=== PATIENT | male | born 1990 | race African-American/Black ===

== ENCOUNTER 2016-11-25 08:48 | Inpatient (IN) | payer OTHER ==
[2016-11-25] MEDS ORDERED: HYDROmorphone HCL CARPU-JECT 1 MG/1 ML DISP.SYRIN IVPUSH ONE ×2 (09:41→12:56)
[2016-11-25] MEDS ORDERED: SODIUM CHLORIDE 1,000 ML IV SCH (09:45)
--- NOTE | 2016-11-25 09:50 | PDOC ---
History of Present Illness - General Chief Complaint: Pain, Acute Stated Complaint: ABDOMINAL PAIN Time Seen by Provider: 11/25/16 08:53 - History of Present Illness Initial Comments: 11/25/16 09:43 26-year-old male with a negative past medical history, he is on no medications, NKDA Patient states that on Tuesday, he was awakened from sleep at 5:30 AM with severe upper midepigastric abdominal pain, and he vomited once The pain continued, and he was seen in [place] emergency department on Tuesday , and had x-rays and was sent home He states that Tuesday he felt a little better, but on Tuesday his pain recurred and became more severe On Tuesday he described his pain as upper mid epigastric and left upper quadrant, and was seen in the ER at [facility] He states he had blood work, and was given Pepcid and sent home He states the pain continued, and became more severe today, radiating to his right lower quadrant, and back up to his left upper quadrant and upper midepigastric and RUQ He states the pain is worse with eating, and he has very little appetite He states the pain is worse with deep inspiration He denies any fevers or chills He denies any prior abdominal surgery His last bowel movement was last night He denies any dysuria urgency frequency or urinary symptoms He denies any drug or alcohol use He denies any other complaints at this time He states that he has had gastritis in the past, but that felt a lot different than his pain today, and was mostly burning, and associated with GERD Remainder the review of systems is negative Past History - Past Medical History Allergies/Adverse Reactions: Allergies Allergy/AdvReac Type Severity Reaction Status Date / Time No Known Allergies Allergy Verified 11/25/16 08:51 Home Medications: Ambulatory Orders Dicyclomine HCl [Bentyl -] 20 mg PO BID 11/25/16 Docusate Sodium [Colace -] 100 mg PO BID 11/25/16 Famotidine [Pepcid -] 40 mg PO DAILY 11/25/16 Oxycodone HCl/Acetaminophen [Percocet 5-325 mg Tablet] 1 - 2 tab PO Q4H #30 tablet MDD 10 11/26/16 Other medical history: PT DENIES - Psycho/Social/Smoking Cessation Hx Anxiety: No Suicidal Ideation: No Smoking History: Never smoked Information on smoking cessation initiated: No Hx Alcohol Use: No Drug/Substance Use Hx: No Substance Use Type: None Review of Systems - Review of Systems Able to Perform ROS?: Yes Comments:: 11/25/16 09:47 12 point review of systems is as per history of present illness and otherwise negative *Physical Exam - Vital Signs Last Vital Signs Temp Pulse Resp BP Pulse Ox 98.5 F 80 16 163/110 98 11/25/16 08:55 11/25/16 08:55 11/25/16 08:55 11/25/16 08:55 11/25/16 08:55 - Physical Exam Comments: 11/25/16 09:47 Physical exam Last Vital Signs Temp Pulse Resp BP Pulse Ox 98.5 F 80 16 163/110 98 11/25/16 08:55 11/25/16 08:55 11/25/16 08:55 11/25/16 08:55 11/25/16 08:55 GENERAL: The patient is awake, alert, and in severe pain HEAD: Normal with no signs of trauma. EYES: sclera anicteric, conjunctiva are normal. ENT: Moist mucous membranes. NECK: Normal range of motion, supple LUNGS: Breath sounds equal, clear to auscultation bilaterally. No wheezes, and no crackles. HEART: Regular rate and rhythm, normal S1 and S2 without murmur, rub or gallop. ABDOMEN: The abdomen is soft, but with hypoactive to absent bowel sounds There is upper midepigastric, left upper quadrant, and to a lesser extent diffuse left-sided abdominal tenderness to palpation, with early rebound There is also some right upper quadrant tenderness, but no right lower quadrant tenderness at this time There is no CVA tenderness EXTREMITIES: Normal range of motion, no edema. No clubbing or cyanosis. No cords, erythema, or tenderness. NEUROLOGICAL: Cranial nerves II through XII grossly intact. Normal speech, normal gait. PSYCH: Normal mood, normal affect. SKIN: Warm, Dry, normal turgor, no rashes or lesions noted. ED Treatment Course - LABORATORY CBC & Chemistry Diagram: 11/25/16 09:45 11/25/16 09:45 - RADIOLOGY Radiology Studies Ordered: Category Date Time Status ABDOMEN & PELVIS CT WITH CONTR [CT] Stat CT Scan 11/25/16 09:40 Ordered Medical Decision Making - Medical Decision Making 11/25/16 10:07 EKG Normal sinus rhythm 71, normal axis Normal AV and IV conduction time Normal QTC Nonspecific ST-T waves No old EKG available for comparison 11/25/16 10:43 Laboratory Results - last 24 hr 11/25/16 11/25/16 11/25/16 09:45 09:45 09:45 WBC 7.7 RBC 4.97 Hgb 15.6 Hct 46.4 MCV 93.4 MCHC 33.5 RDW 13.0 Plt Count 303 MPV 7.0 L Sodium 133 L Potassium 4.1 Chloride 100 Carbon Dioxide 28 Anion Gap 5 L BUN 9 Creatinine 1.1 Creat Clearance w eGFR > 60 Random Glucose 89 Calcium 9.6 Total Bilirubin 0.9 AST 31 ALT 22 Alkaline Phosphatase 50 Creatine Kinase Total Protein 8.1 Albumin 4.7 Lipase 18 L Urine Color Yellow Urine Appearance Clear Urine pH 8.5 H Ur Specific [place] 1.020 Urine Protein Negative Urine Glucose (UA) Negative Urine Ketones Negative Urine Blood Negative Urine Nitrite Negative Urine Bilirubin Negative Urine Urobilinogen 0.2 e.u/dl Ur Leukocyte Esterase Negative 11/25/16 09:45 WBC RBC Hgb Hct MCV MCHC RDW Plt Count MPV Sodium Potassium Chloride Carbon Dioxide Anion Gap BUN Creatinine Creat Clearance w eGFR Random Glucose Calcium Total Bilirubin AST ALT Alkaline Phosphatase Creatine Kinase 346 H Total Protein Albumin Lipase Urine Color Urine Appearance Urine pH Ur Specific [place] Urine Protein Urine Glucose (UA) Urine Ketones Urine Blood Urine Nitrite Urine Bilirubin Urine Urobilinogen Ur Leukocyte Esterase 11/25/16 10:44 Pain control, patient hydrated with normal saline, awaiting CT scan Vital Signs - 24 hr 11/25/16 11/25/16 11/25/16 08:55 09:50 10:02 Temperature 98.5 F Pulse Rate 80 Pulse Rate [ 77 Apical] Respiratory 16 18 Rate Blood Pressure 163/110 163/110 Blood Pressure 142/83 [Arm] O2 Sat by Pulse 98 98 Oximetry (%) 11/25/16 11:32 CT scan of the abdomen and pelvis with IV contrast There is significant acute cholecystitis including stones, with a significant amount of pericholecystic fluid, and gas within the lumen of the gallbladder Some of this may be contained within the stones, but emphysematous cholecystitis cannot be ruled out There is some free fluid in the pelvis IV Zosyn ordered, surgery paged urgently 11/25/16 11:[address] Idris Darden surgery, will be here soon 11/25/16 13:37 Dr Darden at bedside - to OR with Dr Darden *DC/Admit/Observation/Transfer Diagnosis at time of Disposition: Acute emphysematous cholecystitis - Discharge Dispostion Condition at time of disposition: Fair Admit: Yes - Prescriptions
[2016-11-25] MEDS ORDERED: HYDROmorphone HCL CARPU-JECT 2 MG/1 ML DISP.SYRIN ONE (09:52)
[2016-11-25 10:07] LABS: MCH 31.4 pg (25.7-33.7); MCHC 33.5 g/dl (32.0-35.9); MEAN CELL VOLUME 93.4 fl (80-96); PLATELET COUNT 303 K/MM3 (134-434); WHITE BLOOD COUNT 7.7 K/mm3 (4.0-10.0)
[2016-11-25 10:11] LABS: PH,URINE 8.5 (4.5-8); URINE APPEARANCE Clear; URINE BILIRUBIN Negative (NEGATIVE); URINE BLOOD Negative (NEGATIVE); URINE GLUCOSE (UA) Negative (NEGATIVE); URINE KETONE Negative (NEGATIVE); URINE LEUK ESTERASE Negative (NEGATIVE); URINE NITRITE Negative (NEGATIVE); URINE PROTEIN Negative (NEGATIVE); URINE UROBILINOGEN 0.2 E.U/dl (0.2-1.0)
[2016-11-25 10:12] LABS: URINE COLOR YELLOW
[2016-11-25 10:27] LABS: ALBUMIN 4.7 g/dl (3.5-5.0); ALK PHOS 50 U/L (32-92); ANION GAP 5 (8-16); BILIRUBIN,TOTAL 0.9 mg/dl (0.2-1.0); CALCIUM 9.6 mg/dl (8.4-10.2); CO2 28 mmol/L (22-28); CREATININE 1.1 mg/dl (0.6-1.3); GLUCOSE,RANDOM 89 mg/dl (74-106); SGOT/AST 31 U/L (10-42); SGPT/ALT 22 U/L (10-40); TOT PROT 8.1 g/dl (6.4-8.3)
[2016-11-25 10:28] LABS: CPK(DFH) 346 IU/L (38-174)
[2016-11-25 10:58] LABS: TROPONIN I (DFP) < 0.03 ng/ml (0.03-0.50)
[2016-11-25 11:00] LABS: CK MB 1.3 ng/ml (0.3-4.0)
[2016-11-25] MEDS ORDERED: PIPERACILLIN/TAZOB 3.375 GM 3.375 GM in DEXTROSE 5%-WATER - 50 ML IVPB ONE (11:30)
[2016-11-25] MEDS ORDERED: PIPERACILLIN/TAZOBACTAM 3.375 GM VIAL IVPB ONE (11:46)
[2016-11-25 12:54] LABS: INR 1.04 (0.82-1.09); PROTHROMBIN TIME (PATIENT) 11.6 SEC (10.2-13.0)
[2016-11-25] MEDS ORDERED: BUPIVACAINE HCL/PF 2.5 MG/ML - 30 ML VIAL IJ ONE (13:13)
[2016-11-25] MEDS ORDERED: METRONIDAZOLE 500 MG PREMIXED 100 ML IVPB ONE (13:57)
[2016-11-25] MEDS ORDERED: LIDOCAINE 1% P/F 10 MG/ML VIAL ONE (13:58)
[2016-11-25] MEDS ORDERED: ceFAZolin SODIUM 1 GM VIAL ONE (13:58)
[2016-11-25] MEDS ORDERED: PROPOFOL 20 ML ONE (14:01)
[2016-11-25] MEDS ORDERED: ROCURONIUM BROMIDE 50 MG/5 ML VIAL ONE (14:01)
[2016-11-25] MEDS ORDERED: SUCCINYLCHOLINE CHLORIDE 200 MG/10 ML VIAL ONE (14:01)
--- NOTE | 2016-11-25 14:06 | HP ---
Admitting History and Physical - Admission Chief Complaint: abd pain History of Present Illness: Pt is a 26M with pain since tuesday . went to [facility] and was sent home. yesterday felt pain again and went to [facility] ER and was given xray and sent home. Came to our ER today with persistent epigastric pain since yesterday. workup here includes CT which shows emphysema of gallbladder. History Source: Patient Limitations to Obtaining History: No Limitations - Smoking History Smoking history: Never smoked - Alcohol/Substance Use Hx Alcohol Use: No Home Medications - Allergies Allergies/Adverse Reactions: Allergies Allergy/AdvReac Type Severity Reaction Status Date / Time No Known Allergies Allergy Verified 11/25/16 08:51 - Home Medications Home Medications: Ambulatory Orders Dicyclomine HCl [Bentyl -] 20 mg PO BID 11/25/16 Docusate Sodium [Colace -] 100 mg PO BID 11/25/16 Famotidine [Pepcid -] 40 mg PO DAILY 11/25/16 Review of Systems - Review of Systems Constitutional: denies: Chills, Fever Eyes: denies: Blind Spots, Blurred Vision HENT: denies: Difficult Swallowing, Ear Discharge Neck: denies: Decreased ROM, Lumps Cardiovascular: denies: Chest Pain, Edema Respiratory: denies: Cough, Exercise Intolerance Gastrointestinal: reports: Abdominal Pain Genitourinary: denies: Burning, Discharge Breasts: denies: Pain, Skin Changes Musculoskeletal: denies: Back Pain, Crepitus Integumentary: denies: Blister, Bruising Neurological: denies: Change in LOC, Change in Speech Endocrine: denies: Excessive Sweating, Flushing Hematology/Lymphatic: denies: Easily Bruised, Excessive Bleeding Psychiatric: denies: Altered Sleep Pattern, Anxiety Physical Examination Vital Signs: Vital Signs Temperature 98.5 F 11/25/16 08:55 Pulse Rate 88 11/25/16 13:37 Respiratory Rate 18 11/25/16 13:37 Blood Pressure 157/98 11/25/16 13:37 O2 Sat by Pulse Oximetry (%) 100 11/25/16 13:37 Constitutional: No: No Distress, Calm Eyes: No: Conjunctiva Clear, EOM Intact HENT: No: Atraumatic, Normocephalic Neck: No: Supple, Trachea Midline Cardiovascular: No: Regular Rate and Rhythm Respiratory: No: Regular Gastrointestinal: Yes: Tenderness (min mild tender epigatrum, no guarding). No : Soft, Distention ...Rectal Exam: Yes: Deferred Renal/: No: CVA Tenderness - Left, CVA Tenderness - Right Musculoskeletal: No: Joint Stiffness, Joint Swelling Extremities: No: Calf Tenderness, Erythema Integumentary: No: Erythema, Rash Neurological: Yes: Alert, Oriented Psychiatric: Yes: Alert, Oriented Labs: CBC, BMP 11/25/16 09:45 11/25/16 09:45 Imaging - Results Cat Scan: Report Reviewed, Image Reviewed Problem List - Problems (1) Acute emphysematous cholecystitis Assessment/Plan: for lap chris r/b/a d/w pt Code(s): K81.0 - ACUTE CHOLECYSTITIS
[2016-11-25] MEDS ORDERED: ONDANSETRON 4 MG/2 ML VIAL ONE (15:23)
[2016-11-25] MEDS ORDERED: NEOSTIGMINE METHYLSULFATE 0.5 MG/ML - 10 ML MDV ONE (15:23)
[2016-11-25] MEDS ORDERED: DEXAMETHASONE SOD PHOSPHATE 4 MG/1 ML VIAL ONE (15:23)
[2016-11-25] MEDS ORDERED: KETOROLAC TROMETHAMINE 30 MG/1 ML VIAL ONE (15:23)
[2016-11-25] MEDS ORDERED: GLYCOPYRROLATE 0.2 MG/1 ML VIAL ONE ×2 (15:23)
[2016-11-25] MEDS ORDERED: ONDANSETRON 4 MG/2 ML VIAL IVPB PRN (15:32)
[2016-11-25] MEDS ORDERED: oxyCODONE HCL 5 MG TABLET PO PRN ×2 (15:32→15:51)
[2016-11-25] MEDS ORDERED: ZOLPIDEM TARTRATE 5 MG TABLET PO PRN (15:32)
--- NOTE | 2016-11-25 15:37 | OP ---
Operative Note - Note: Operative Date: 11/25/16 Pre-Operative Diagnosis: acute cholecystitis Operation: laparoscopic cholecystectomy Findings: acute cholecystitis Post-Operative Diagnosis: Same as Pre-op Surgeon: Idris Darden Laboratory Equipment Cleaner: Roseanne Borges Anesthesia: General Estimated Blood Loss (mls): 30 Operative Report Dictated: Yes
[2016-11-25] MEDS ORDERED: LACTATED RINGERS SOLUTION 1,000 ML IV SCH (15:45)
[2016-11-25] MEDS ORDERED: ONDANSETRON 4 MG/2 ML VIAL IVPUSH PRN (15:51)
[2016-11-25 17:27] VITALS: BMI 34.8
[2016-11-25] MEDS: oxyCODONE HCL 5 MG TABLET PO PRN ×2 (17:43→21:46)
[2016-11-25] MEDS: ACETAMINOPHEN 325 MG TABLET (FP) PO PRN (21:47)
--- NOTE | 2016-11-25 23:52 | OP ---
DATE OF OPERATION: 11/25/2016 PREOPERATIVE DIAGNOSIS: Acute cholecystitis with emphysema of the gallbladder. POSTOPERATIVE DIAGNOSIS: Acute cholecystitis with emphysema of the gallbladder. PROCEDURE: Laparoscopic cholecystectomy. SURGEON: Malik Darden M.D. GLOBAL HUMAN RESOURCES DIRECTOR: Roselia Pulido ANESTHESIA: General endotracheal anesthesia. ESTIMATED BLOOD LOSS: 30 mL. COMPLICATIONS: There were no complications. DESCRIPTION OF PROCEDURE: Patient was brought to the operating room from the emergency room after confirming name, date of , medical record number. He was placed in supine position and SCDs for DVT prophylaxis. He received appropriate perioperative antibiotics. He was then induced and intubated by the anesthesiologist. Hair was then clipped off his abdomen. He was then prepped and draped in the usual sterile fashion. A timeout was then performed. A 1-inch supraumbilical incision was made and then bluntly dissected down to the fascia. I used electrocautery to go through the fascia, and then I grabbed the abdominal wall anteriorly and then continued to make the fascial opening larger both cephalad and caudad, and then I used a Gail clamp to go through the peritoneum. I then placed my finger inside the abdomen, performed a finger sweep, and insured no adhesions. I then placed a 10-mm balloon and Virgen-type trocar inside the abdomen, insufflated the abdomen to a pressure of 15 mmHg. It was noted the colon had a very large and dilated colon consistent with likely an ileus, and it was also apparent that there was a very angry gallbladder because of the omentum tensely adhesed to it. At this point, we placed two 5-mm trocars in the right hailey-abdomen, done under direct vision with transillumination to avoid injury to the abdominal wall, blood vessel, and one in the subxiphoid region. We then turned our attention towards trying to grab the gallbladder, retracting it. However, because it was tense distention, we used electrocautery to get into the gallbladder and used the suction bag inspector to decompress the gallbladder. At this point we then closed the hole with the grasper and lifted it towards the right shoulder, and then the omental fat was retracted, and then hook electrocautery was used to take these dense adhesions off the gallbladder. As we were able to lift the gallbladder up, there were more adhesions, and there was a lot of inflammation near the neck of the gallbladder and using a combination of blunt dissection and hook electrocautery, I was able to dissect out the neck of the gallbladder. There was marked edema in this area and mostly blunt dissection was done. Once I was able to get close to the cystic duct, I used a combination of hook electrocautery and blunt dissection to dissect out the cystic duct, and then the cystic artery, and I was able to identify Calot node as well. I then continued to dissect underneath the gallbladder to make sure there were no structures returning to liver bed, and once I was confident I saw the cystic duct go into the gallbladder, and the cystic artery go into the gallbladder with no structure returning, I then placed 4 metal clips on the cystic duct and 3 metal clips on the artery and then cut, leaving 1 clip on the specimen side for each. I then used hook electrocautery to take the gallbladder off the liver bed, and it was somewhat intrahepatic, and there was also a lot of inflammation because there was a lot of gallstone disease. Once the gallbladder was finally taken off the liver bed, it was then placed in the 10-mm specimen treatment bag and sent off the field for permanent examination. I then copiously irrigated out the field and aspirated out any fluid, examined the stumps, and there was no bleeding noted. At this point, I then removed the trocars, I desufflated the abdomen, and closed the supraumbilical fascia with a [id number], 0 Vicryl suture. I then reapproximated the skin and subcutaneous tissues after insuring hemostasis with 4-0 Monocryl in the subcutaneous fashion. Dermabond was then applied. All counts were correct. MALIK DARDEN M.D. JENSEN/[id number]
[2016-11-26 06:25] VITALS: BP 130/58; PULSE 78; TEMP 99.5
--- NOTE | 2016-11-26 07:30 | SURG ---
Surgery [employer] Rock Drilling Machine Operator Note [employer] Drilling Machine Operator: Roseanne Borges PA-C Date of Service: 11/25/16 Diagnosis: acute cholecystitis Procedure: laparoscopic cholecystectomy I was present for the entirety of the operative procedure. For further detail, please refer to operative report. Visit type - Case Type Case Type: ED Admission - Emergency Emergency Visit: Yes ED Registration Date: 11/25/16 Care time: The patient presented to the Emergency Department on the above date and was hospitalized for further evaluation of their emergent condition. - New patient This patient is new to me today: Yes Date on this admission: 11/26/16 - Critical Care Critical Care patient: No
--- NOTE | 2016-11-26 09:35 | DS ---
Physical Examination Vital Signs: Vital Signs Temperature 99.5 F 11/26/16 03:00 Pulse Rate 78 11/26/16 03:00 Respiratory Rate 18 11/26/16 03:00 Blood Pressure 130/58 11/26/16 03:00 O2 Sat by Pulse Oximetry (%) 95 11/26/16 06:18 Constitutional: Yes: No Distress, Calm Eyes: Yes: Conjunctiva Clear, EOM Intact HENT: Yes: Atraumatic, Normocephalic Neck: Yes: Supple, Trachea Midline Cardiovascular: Yes: Regular Rate and Rhythm Respiratory: Yes: Regular, CTA Bilaterally Gastrointestinal: Yes: Soft, Distention, Tenderness ...Rectal Exam: Yes: Deferred Renal/: No: CVA Tenderness - Left, CVA Tenderness - Right Breast(s): No: Mass, Nipple Inversion Musculoskeletal: No: Joint Stiffness, Joint Swelling Extremities: No: Calf Tenderness, Erythema Integumentary: No: Erythema, Rash Neurological: Yes: Alert, Oriented Psychiatric: Yes: Alert, Oriented Discharge Summary Reason For Visit: ACUTE EMPHYSEMATOUS CHOLECYSTITIS Current Active Problems Acute emphysematous cholecystitis (Acute) Procedures: Principal: laparoscopic cholecystectomy Hospital Course: patient admitted with emphysematous cholecystitis. underwent emergent lap chris. did well and was discharged once pain controlled. Condition: Improved - Instructions Diet, Activity, Other Instructions: low fat diet. take laxatives with pain medication. no heavy lifting 30lbs x 3 weeks. call office to make follow up appt in 1-2 weeks. [phone] Referrals: Idris Darden MD [Staff Physician] - Disposition: HOME - Home Medications Comprehensive Discharge Medication List: Ambulatory Orders Dicyclomine HCl [Bentyl -] 20 mg PO BID 11/25/16 Docusate Sodium [Colace -] 100 mg PO BID 11/25/16 Famotidine [Pepcid -] 40 mg PO DAILY 11/25/16 Oxycodone HCl/Acetaminophen [Percocet 5-325 mg Tablet] 1 - 2 tab PO Q4H #30 tablet MDD 10 11/26/16
[2016-11-26] MEDS: ACETAMINOPHEN 325 MG TABLET (FP) PO PRN (10:30)
[2016-11-26] MEDS: oxyCODONE HCL 5 MG TABLET PO PRN (10:31)
--- NOTE | 2016-11-26 12:40 | EKG ---
Test Reason : Blood Pressure : / mmHG Vent. Rate : 071 BPM Atrial Rate : 071 BPM P-R Int : 160 ms QRS Dur : 076 ms QT Int : 364 ms P-R-T Axes : 070 070 021 degrees QTc Int : 395 ms NORMAL SINUS RHYTHM NONSPECIFIC ST ABNORMALITY NO PREVIOUS ECGS AVAILABLE Confirmed by MD DAVIS MARJORY ([id number]) on 11/26/2016 12:40:20 PM Referred By: BLANE SUAREZ Confirmed By:INDY DAVIS MD
--- NOTE | 2016-11-29 11:52 | PATH ---
Surgical Pathology Report Patient Name: KELLIE LIMON Med. Rec. #: [id number] /Age/Gender: 1990 (Age: 26) / M Account: [id number] Location: [facility] Taken: 11/25/2016 Received: 11/25/2016 Reported: 11/29/2016 Physicians: Idris Darden MD Specimen(s) Received GALLBLADDER Clinical History Acute cholecystitis Final Diagnosis GALLBLADDER, CHOLECYSTECTOMY: ACUTE HEMORRHAGIC AND CHRONIC CHOLECYSTITIS, CHOLELITHIASIS. ONE BENIGN REACTIVE LYMPH NODE WITH FOCAL HEMORRHAGE. Electronically Signed Ananth Hernandes M.D. Gross Description Received in formalin, labeled "gallbladder" is a 9.0 x 3.5 x 2.5 cm. gallbladder with a 0.2 cm in length portion of cystic duct attached. There is a 2.0 x 1.0 x 0.6 cm neville brown possible periductal lymph node present. The outer surface is neville-mack and varies from smooth to shaggy. The lumen contains yellow, sludgelike bile as well as multiple irregular choleliths ranging from 0.1-1.3 cm in greatest dimension. The mucosa is neville-brown and focally eroded. The wall of the gallbladder ranges from 0.1-0.4 cm in thickness. Motorcycle Builder sections are submitted in 2 cassettes as follows: 1-cystic duct margin and development representative gallbladder; 2-one whole bisected lymph node. 11/26/201611/26/2016
== END 2016-11-26 11:59 | disposition home or self-care (01) | DRG 419 ==
LOC: FER 08:48 → FASU 14:09 → FM/S 15:33
PROVIDERS: ADMIT Surgery; ATTEND Surgery
PROC: 0FT44ZZ Resection of Gallbladder, Percutaneous Endoscopic Approach (ICD-10-PCS; principal; 2016-11-25 14:00)
DX: K80.12 Calculus of gallbladder with acute and chronic cholecystitis without obstruction (principal)
CPT/HCPCS: 36415; 74177-TC; 80053; 81003; 82550; 82553; 83690; 84484; 85027; 85610; 86850; 86900; 86901; 87040; 88304-TC; 93005; 94760; 99285-25